=== PATIENT | male | born 1990 | race Caucasian/White ===

== ENCOUNTER 2020-06-30 19:43 | Emergency (ER) | payer OTHER ==
[~2020-06-30] VITALS: Ht 180.3 cm; Wt 89.9 kg
[2020-06-30 19:46] VITALS: BP 141/84
--- NOTE | 2020-06-30 20:05 | NUR ---
QUALITY ENGINEER MEDICAL DEVICE: PT TO ROOM FROM LOBBY.
--- NOTE | 2020-06-30 20:14 | NUR ---
PT TO ROOM, VIA WHEELCHAIR. DRESSING REMOVED FROM RIGHT TOE. PT HAS LAC AT THE CUTICLE ABOVE THE NAIL BED WHERE PT DROPPED A 25LB WEIGHT ON HIS TOE WHILE WORKING OUT AT THE GYM. ACTIVE BLEEDING NOTED, AND DRESSING RE PLACED UNTIL MD TO BEDSIDE. PT HAS FEELING AND SENSATION, AND LEVEL VIAL CURVATURE GAUGER <3SEC TO THE TOE.
[2020-06-30] MEDS ORDERED: LIDOCAINE-MPF 1%, 5ML ONE (20:20)
[2020-06-30] MEDS ORDERED: LIDOCAINE-MPF 1%, 5ML INFIL ONE (20:30)
[2020-06-30] MEDS ORDERED: CEFAZOLIN 1,000 MG ONE (21:41)
[2020-06-30] MEDS ORDERED: CEFAZOLIN 1,000 MG IM ONE (22:00)
[2020-06-30] MEDS ORDERED: DIPH,PERTUSS(ACELL),TET VAC/PF 0.5 ML IM-VACC ONE ×2 (22:00→22:13)
--- NOTE | 2020-06-30 22:08 | NUR ---
PTS WOUND TO RIGHT BIG TOE CLEANED AND CLOSED WITH DERMABOND AND STERI STRIPS, PT TOLERATED WELL, AND STILL HAS NUMBNESS TO THE BIG TOE FROM THE LIDOCAINE. F/U AND D/C INSTRUCTIONS GIVEN TO PT, AFTER ANCEF IM AND TETANUS SHOTS GIVEN. PRESCRIPTIONS SENT WITH PT.
--- NOTE | 2020-06-30 22:26 | NUR ---
F/U AND D/C INSTRUCTIONS GIVEN TO PT WITH CRUTCH TRAINING AND OBSERVABLE USE BY PT. PT D/C'D WITHOUT ISSUE.
== END 2020-06-30 22:38 | disposition home or self-care (01) ==
LOC: ED 22:00
DX: S92.424B Nondisplaced fracture of distal phalanx of right great toe, initial encounter for open fracture (principal); S91.111A Laceration without foreign body of right great toe without damage to nail, initial encounter; X58.XXXA Exposure to other specified factors, initial encounter; Y93.89 Activity, other specified; Y92.009 Unspecified place in unspecified non-institutional (private) residence as the place of occurrence of the external cause; Y99.8 Other external cause status
CPT/HCPCS: 12041; 99284